=== PATIENT | female | born 1970 | race Caucasian/White ===

== ENCOUNTER 2021-11-22 12:31 | Emergency (ER) | payer OTHER, SELFPAY ==
--- NOTE | 2021-11-22 12:34 | ED.SKABFB ---
HPI - Skin/Abscess/Foreign Bdy General Chief complaint: Skin/Abscess/Foreign Body Stated complaint: Skin Sore Time Seen by Provider: 11/22/21 12:35 Source: patient and RN notes reviewed History of Present Illness HPI narrative: Patient is a 51-year-old female who presents the urgent care with complaints of an abscess to the right forearm. Patient states that she has been here before for an abscess lanced a few years ago and was placed on oral antibiotics. Patient states that she does not wish to go to the emergency room and states that she would just rather come here and get it resolved . 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 Patient states that she had a slip . Patient is also positive for hepatitis C. Patient states that she had some clindamycin leftover which she started yesterday. Patient states that this abscess just started within the last 2 days and she is unsure it was a spider bite or use of IV drugs . Patient states she has been placing warm compress on the area. Denies of any fever, nausea or vomiting. No other acute complaints. No acute distress noted. Patient aware of the plan of care. Some parts of this dictation were generated by voice recognition software and may contain typographical and/or grammatical inaccuracies. Related Data Home Medications Medication Instructions Recorded Confirmed No Home Medications 11/22/21 11/22/21 Allergies Allergy/AdvReac Type Severity Reaction Status Date / Time Penicillins Allergy Unknown RASH Verified 11/22/21 12:45 Review of Systems Review of Systems: CONSTITUTIONAL: Denies fever, chills, or sweats. EYES: Denies visual changes, redness, or discharge. ENT: Denies rhinorrhea, congestion, sore throat, or otalgia. CARDIOVASCULAR: Denies chest pain, palpitations, or edema. RESPIRATORY: Denies cough or dyspnea. GASTROINTESTINAL: Denies abdominal pain, nausea, vomiting, or diarrhea. GENITOURINARY: Denies dysuria or hematuria. SKIN: Reports of a large abscess to the right forearm MUSCULOSKELETAL: Denies back pain, joint pain, or myalgia. NEUROLOGIC: Denies headache, numbness, or weakness. All other systems reviewed are negative, except as documented in HPI. PMFSH Comments At the time of my signature, I reviewed and agree with the nursing past medical, surgical, social, and family history. There is no relevant family history pertinent to the patient complaint. Exam Narrative: GENERAL: This is a well-nourished, well-developed patient, in no apparent distress. HEAD: normocephalic, atraumatic. EYES: PERRL. Sclera clear/white. Vision is grossly intact. EARS: External ears normal NOSE: External nose normal with no obvious nasal discharge, nares without redness, no rhinorrhea. THROAT: Mucous membranes moist, posterior pharynx clear. NECK: Neck supple SKIN: Diaphoretic; firm15 cm x 13 cm erythemic moderately edematous abscess to the lateral dorsal aspect of the right forearm with moderate warmth and tenderness, notable scant drainage NEURO: awake, alert, and oriented to person, place and time. There were no obvious focal neurologic abnormalities. EXTREMITIES: No clubbing, cyanosis, or edema. Positive strong right radial pulse with capillary refill less than 2 seconds. Range of motion right upper extremity within normal limits Course Course Level of Care: Express Care Visit Vital Signs Vital signs: Vital Signs Temperature 98.4 F 11/22/21 12:40 Pulse Rate 78 11/22/21 12:40 Respiratory Rate 18 11/22/21 12:40 Blood Pressure 164/74 H 11/22/21 12:40 Pulse Oximetry 100 11/22/21 12:40 Temperature 98.4 F 11/22/21 12:40 Pulse Rate 78 11/22/21 12:40 Respiratory Rate 18 11/22/21 12:40 Blood Pressure 164/74 H 11/22/21 12:40 Pulse Oximetry 100 11/22/21 12:40 Reviewed-patient is informed that they may have pre-hypertension or hypertension based on a blood pressure reading in the department. I recommend the patient call the bossman
[2021-11-22 12:40] VITALS: BP 164/74; PULSE 78; RESP 18; TEMP 36.9; O2SAT 100
== END 2021-11-22 12:40 | disposition left against medical advice (07) ==
PROVIDERS: Emergency Provider Nurse Practitioner Family; PCP Internal Medicine
DX: L02.413 Cutaneous abscess of right upper limb (principal)
CPT/HCPCS: 99211; G0463